=== PATIENT | female | born 1955 | race Caucasian/White ===

== ENCOUNTER 2020-06-08 08:36 | Day surgery (SDC) | payer MEDICARE, SELFPAY ==
[~2020-06-08] VITALS: Ht 154.9 cm; Wt 78.6 kg
[~2020-06-08 08:36] MED LIST: CYCL10 PO; LISINOPRIL-HCT1 EACH PO; METAMUCIL POWD575 GM PO; METF500 PO
--- NOTE | 2020-06-08 09:06 | NUR ---
06/08/20 0906 Stephanie Decker 1 TRY RIGHT HAND VALVE 2 TRY RIGHT UPPER ARM MOVED
[2020-07-17] MEDS ORDERED: FURO20 PO (12:26)
[2020-07-17] MEDS ORDERED: ZESTRIL40 M1 PO (12:26)
[2020-07-17] MEDS ORDERED: ALLEGRA ALLERG180 MG PO (12:27)
[2020-07-17] MEDS ORDERED: OMEP20ER PO (12:28)
[2020-07-17] MEDS ORDERED: BENADRYL25 MG PO (12:28)
== END 2020-06-08 10:48 | disposition home or self-care (01) ==
LOC: ORSCSDS 08:36
PROVIDERS: Internal Medicine Gastroenterology
PROC: 0DBL8ZX Excision of Transverse Colon, Via Natural or Artificial Opening Endoscopic, Diagnostic (ICD-10-PCS; principal; 2020-06-08 09:45)
PROC: 3E0H8KZ Introduction of Other Diagnostic Substance into Lower GI, Via Natural or Artificial Opening Endoscopic (ICD-10-PCS; principal; 2020-06-08 09:45)
DX: Z12.11 Encounter for screening for malignant neoplasm of colon (principal); D37.4 Neoplasm of uncertain behavior of colon; K57.30 Diverticulosis of large intestine without perforation or abscess without bleeding; K64.8 Other hemorrhoids; Z80.0 Family history of malignant neoplasm of digestive organs; E11.9 Type 2 diabetes mellitus without complications; E78.5 Hyperlipidemia, unspecified; I10 Essential (primary) hypertension; F41.9 Anxiety disorder, unspecified; K21.9 Gastro-esophageal reflux disease without esophagitis; Z79.84 Long term (current) use of oral hypoglycemic drugs; Z79.899 Other long term (current) drug therapy
CPT/HCPCS: 82947; 88305; J2704; J7040; J7120

== ENCOUNTER 2020-07-19 10:44 | Inpatient (IN) | payer MEDICARE, SELFPAY ==
[~2020-07-19] VITALS: Ht 154.9 cm; Wt 82.3 kg
[~2020-07-19 10:44] MED LIST changes: +ALLEGRA ALLERG180 MG PO; +BENADRYL25 MG PO; +FURO20 PO; +OMEP20ER PO; +ZESTRIL40 M1 PO
[2020-07-20 11:46] LABS: International Normalized Ratio 0.97; Prothrombin Time Results 10.4 Sec (9.7-11.5)
--- NOTE | 2020-07-21 08:57 | NUR ---
Ambulatory in Day Surgery. Surgical site prepped with 2% Chlorhexidine cloth wipe. Patient states colon prep results clear. History, Chart, Medications and Allergies reviewed before start of procedure. Lungs clear T/O to Auscultation. Patient confirms NPO status and agrees with scheduled surgery. Pre-Op teaching done. Pt verbalizes understanding. Patient reports completing Chlorhexadine shower X2 prior to admission to hospital. CBG 240. 2 units Regular insulin ordered. Ordered from pharmacy.
[2020-07-21] MEDS ORDERED: GUAI600T33 PO (09:02)
[2020-07-21 15:24] LABS: BASOPHILS ABSOLUTE AUTO 0.04 K/mm3 (0.00-0.23); BASOPHILS PERCENT AUTO 0 % (0-2); EOSINOPHILS ABSOLUTE AUTO 0.01 K/mm3 (0.00-0.68); EOSINOPHILS PERCENT AUTO 0 % (0-6); Hematocrit 38.6 % (33.0-51.0); IMMATURE GRAN ABSOLUTE AUTO 0.03 K/mm3 (0.00-0.10); IMMATURE GRAN PERCENT AUTO 0 % (0-1); LYMPHOCYTES ABSOLUTE AUTO 0.74 K/mm3 (0.84-5.20); LYMPHOCYTES PERCENT AUTO 6 % (21-46); MONOCYTES ABSOLUTE AUTO 0.44 K/mm3 (0.16-1.47); MONOCYTES PERCENT AUTO 3 % (4-13); Mean Corpuscular HGB 28.8 pg (26.0-34.0); Mean Corpuscular HGB Conc 33.7 g/dL (31.5-36.5); Mean Corpuscular Volume 85 fL (80-100); Mean Platelet Volume 11.5 fL (9.1-12.4); NEUTROPHILS ABSOLUTE AUTO 11.93 K/mm3 (1.96-9.15); NEUTROPHILS PERCENT AUTO 91 % (41-73); Platelet Count 194 K/mm3 (150-400); RDW Coefficient Variation 12.9 % (11.7-14.2); RDW Standard Deviation 40.2 fL (35.1-46.3); Red Blood Cell Count 4.52 M/mm3 (3.80-5.20); White Blood Cell Count 13.19 K/mm3 (4.00-11.30)
--- NOTE | 2020-07-21 18:08 | NUR ---
SUMMARY PT REPORTS PAIN LEVEL 5-8/10 TO ABDOMEN. NAZ MIDLINE DRESSING INTACT. LAP SITES X3 WITH DRESSINGS INTACT. MEDICATED X1 FOR NAUSEA WITH RELIEF OF. PT RESTING WITH EYES CLOSED WHEN UNDISTURBED
[2020-07-22 04:26] LABS: BASOPHILS ABSOLUTE AUTO 0.06 K/mm3 (0.00-0.23); BASOPHILS PERCENT AUTO 0 % (0-2); EOSINOPHILS ABSOLUTE AUTO 0.01 K/mm3 (0.00-0.68); EOSINOPHILS PERCENT AUTO 0 % (0-6); Hematocrit 43.4 % (33.0-51.0); Hemoglobin 14.6 g/dL (11.5-16.0); IMMATURE GRAN ABSOLUTE AUTO 0.09 K/mm3 (0.00-0.10); IMMATURE GRAN PERCENT AUTO 1 % (0-1); LYMPHOCYTES ABSOLUTE AUTO 2.44 K/mm3 (0.84-5.20); LYMPHOCYTES PERCENT AUTO 17 % (21-46); MONOCYTES ABSOLUTE AUTO 1.28 K/mm3 (0.16-1.47); MONOCYTES PERCENT AUTO 9 % (4-13); Mean Corpuscular HGB 28.2 pg (26.0-34.0); Mean Corpuscular HGB Conc 33.6 g/dL (31.5-36.5); Mean Corpuscular Volume 84 fL (80-100); NEUTROPHILS ABSOLUTE AUTO 10.43 K/mm3 (1.96-9.15); NEUTROPHILS PERCENT AUTO 73 % (41-73); RDW Coefficient Variation 13.2 % (11.7-14.2); RDW Standard Deviation 40.7 fL (35.1-46.3); Red Blood Cell Count 5.18 M/mm3 (3.80-5.20); White Blood Cell Count 14.31 K/mm3 (4.00-11.30)
[2020-07-22 04:30] LABS: Mean Platelet Volume 11.9 fL (9.1-12.4); Platelet Count 205 K/mm3 (150-400)
[2020-07-22 04:34] LABS: Alanine Aminotransfer (ALT/SGP 35 U/L (12-78); Albumin/Globulin Ratio 0.5 (0.8-1.8); Alk Phos 89 U/L (50-136); Anion Gap 5 mmol/L (6-16); Aspartate Aminotrans (AST/SGOT 45 U/L (12-37); Bilirubin, Total 0.4 mg/dL (0.1-1.0); Blood Urea Nitrogen 17 mg/dL (8-24); Bun/Creatinine Ratio 22.2 (12.0-20.0); CO2, Blood 29 mmol/L (21-32); Calcium, Blood 8.4 mg/dL (8.5-10.1); Chloride, Blood 106 mmol/L (98-108); Creatinine, Blood 0.77 mg/dL (0.40-1.00); Globulin, Blood 3.9 g/dL (2.2-4.0); Glomerular Filtration Rate >60 (60-); Glucose, Blood 151 mg/dL (70-99); Sodium, Blood 140 mmol/L (136-145); Total Protein, Blood 5.9 g/dL (6.4-8.2)
--- NOTE | 2020-07-22 04:39 | NUR ---
SHIFT SUMMARY POD1 R HEMICOLECTOMY. AOX4. HYPERTENSIVE BUT IMPROVED THIS MORNING. REPORTS PAIN. PAIN MANAGED WITH DILAUDID AND NORCO PRN. PT REPORTS MILD NAUSEA DENIES VOMITING. MEDICATED WITH ZOFRAN X 1 DURING MY SHIFT. URINARY CATHETER IS STILL IN PLACED. PT HAS MIDLINE NAZ WITH MILD DRAINAGE WHICH HAS NOT CHANGED SINCE THE BEGINNING OF THE SHIFT. LR INFUSING ON LEFT FOREARM WITH 100ML/HR. TOLERATING ICE CHIPS AND WATER AT THIS TIME. PT DENIES PASSING FLATUS. CALL LIGHT WITHIN REACH.
--- NOTE | 2020-07-22 19:43 | NUR ---
SHIFT SUMMARY PT A&OX4, VSS, POD1 LAP HEMICOLECTOMY, MIDLINE NAZ/3 LAPSITES CDI, BELCHING+ DENIES FLATUS. PAIN TREATED WITH 0.5 MG IV DILAUDID X2 AND ULTRAM 50 MG X1. PACO CLEAR LIQUID DIET IN SMALL AMOUNTS, ZOFRAN GIVEN X2. AMBULATED SBA TO CHAIR FOR A SHORT TIME, BACK TO BED, SAT ON BEDSIDE. ALLEN PATENT & DRAINING ORANGE URINE. REPORT GIVEN TO FAVIAN TRACY.
--- NOTE | 2020-07-23 03:48 | NUR ---
SHIFT SUMMARY PT IS A/O X4. REPOSITIONS SELF IN BED AND HAS BEEN ASSISTED PRN. PT IS TOLERATING CLEAR LIQUIDS WITH MINIMAL NAUSEA OVERNIGHT. PAIN MANAGED WITH ULTRAM PER ORDERS. NAZ DRESSING CHANGED ORIGINAL DRESSING WOULD NOT SEAL. PT C/O REFLUX; MED WITH OMEPRAZOLE PER ORDER. THIS HELPED GREATLY AND PT WAS ABLE TO GET SOME REST. ALLEN IN PLACE WITH LOW URINE OUTPUT. IV FLUIDS INFUSING OVERNIGHT. ABD BINDER PRN FOR COMFORT. PT RESTING AT THIS TIME.
[2020-07-23 04:11] LABS: BASOPHILS ABSOLUTE AUTO 0.07 K/mm3 (0.00-0.23); BASOPHILS PERCENT AUTO 1 % (0-2); EOSINOPHILS ABSOLUTE AUTO 0.04 K/mm3 (0.00-0.68); EOSINOPHILS PERCENT AUTO 0 % (0-6); Hematocrit 42.3 % (33.0-51.0); Hemoglobin 13.6 g/dL (11.5-16.0); IMMATURE GRAN ABSOLUTE AUTO 0.06 K/mm3 (0.00-0.10); IMMATURE GRAN PERCENT AUTO 0 % (0-1); LYMPHOCYTES ABSOLUTE AUTO 1.27 K/mm3 (0.84-5.20); LYMPHOCYTES PERCENT AUTO 9 % (21-46); MONOCYTES ABSOLUTE AUTO 0.78 K/mm3 (0.16-1.47); MONOCYTES PERCENT AUTO 6 % (4-13); Mean Corpuscular HGB 27.8 pg (26.0-34.0); Mean Corpuscular HGB Conc 32.2 g/dL (31.5-36.5); Mean Corpuscular Volume 87 fL (80-100); Mean Platelet Volume 11.2 fL (9.1-12.4); NEUTROPHILS ABSOLUTE AUTO 12.07 K/mm3 (1.96-9.15); NEUTROPHILS PERCENT AUTO 84 % (41-73); Platelet Count 275 K/mm3 (150-400); RDW Coefficient Variation 13.2 % (11.7-14.2); RDW Standard Deviation 42.1 fL (35.1-46.3); Red Blood Cell Count 4.89 M/mm3 (3.80-5.20); White Blood Cell Count 14.29 K/mm3 (4.00-11.30)
[2020-07-23 04:30] LABS: Alanine Aminotransfer (ALT/SGP 26 U/L (12-78); Albumin, Blood 1.8 g/dL (3.4-5.0); Albumin/Globulin Ratio 0.4 (0.8-1.8); Alk Phos 94 U/L (50-136); Anion Gap 7 mmol/L (6-16); Aspartate Aminotrans (AST/SGOT 26 U/L (12-37); Bilirubin, Total 0.6 mg/dL (0.1-1.0); Blood Urea Nitrogen 18 mg/dL (8-24); Bun/Creatinine Ratio 26.7 (12.0-20.0); CO2, Blood 27 mmol/L (21-32); Calcium, Blood 8.5 mg/dL (8.5-10.1); Chloride, Blood 103 mmol/L (98-108); Creatinine, Blood 0.67 mg/dL (0.40-1.00); Globulin, Blood 4.1 g/dL (2.2-4.0); Glomerular Filtration Rate >60 (60-); Glucose, Blood 177 mg/dL (70-99); Sodium, Blood 137 mmol/L (136-145); Total Protein, Blood 5.9 g/dL (6.4-8.2)
--- NOTE | 2020-07-23 16:14 | NUR ---
SHIFT SUMMARY PT A&OX4, VSS, POD2 LAP R HEMICOL, NAZ WNL, DENIES FLATUS, REPORTS BELCHING. PACO CLEAR LIQ DIET. AMBULATING TO BRP, AND IN HALLWAYS, UP TO CHAIR. VOIDING. PAIN MANAGED WITH ULTRAM 50 MG. WILL REPORT TO ONCOMING NOC RN.
--- NOTE | 2020-07-24 04:46 | NUR ---
SHIFT SUMMARY PT HAS BEEN A/O X4. IND. IN ROOM. PT IS VOIDING W/O DIFFICULTY. REPORTS PASSING FLATUS THIS SHIFT, NO BM YET. TOLERATING CLEAR LIQUIDS W/O NAUSEA. PT HAS DENIED NEED FOR PAIN MEDICATION OVERNIGHT. NAZ IN PLACE, FOAM COMPRESSED, GREEN LIGHT ON. LAP SITES CDI OVERNIGHT. PT RESTING IN BED AT THIS TIME, CALL LIGHT IN REACH.
--- NOTE | 2020-07-24 13:40 | NUR ---
Advance Directive(AD) Education/Spiritual Care visit conducted. Patient is lying in bed and alert. Patient tells me of her interest in the AD and so I give her an AD booklet and explain about the sections and the filing process. Patient demonstrates clear comprehension. Patient states that she would like to go over the booklet with her spouse. Patient tells me the family and fellow AA members that are praying for her. 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 She feels as if her last surgery could have had horrible results yet some how the doctors were able to stop the bleeding and pull her through. She is says that she is very thankful to be alive. Patient shares about a long list of loved ones who have in recent years including her sister who last November due to colon cancer. I normalize patient's experience and provide spiritual guidance, grief support and prayer. Patient responds well and shows signs of an elevated mood. I will continue to remain available to patient and family.
--- NOTE | 2020-07-24 16:24 | NUR ---
SHIFT SUMMARY PT IS POD#3 FROM OPEN CHIQUIS-COLECTOMY WITH DR. NATHAN. PAIN HAS BEEN MANAGED WITH ULTRAM THIS SHIFT. PT HAS BEEN ABLE TO PASS FLATUS AND HAVE A SMALL BM. PT TOLERATED FULL LIQUIDS FOR LUNCH AND WILL BE TRYING REGULAR FOR DINNER. PT HAS BEEN INDEPENDENT IN THE ROOM. VSS. WILL MONITOR UNTIL REPORT TO MICHELLE TRACY.
--- NOTE | 2020-07-25 02:47 | NUR ---
SHIFT SUMMARY: POD 4 CHIQUIS-COLECTOMY PATIENT IS ALERT AND ORIENTED X4 WHILE AWAKE. SHE HAS BEEN ASLEEP MAJORITY OF THE SHIFT. VS ARE WNL AND IS ON RA. PAIN IS CONTROLLED WITH ULTRAM PO THOUGH HAS NOT NEEDED IT SO FAR THIS SHIFT. PATIENT IS PASSING GAS, VOIDING, AND HAD A SMALL BM YESTERDAY ON DAYSHIFT. SHE TOLERATED HER FULL LIQUIDS YESTERDAY AND WILL TRY A REGULAR DIET FOR BREAKFAST. SHE IS INDEPENDENT IN THE ROOM. CALLS APPROPRIATELY. NAZ FOAM ON MIDLINE OF ABD IS COMPRESSED. SHE IS CURRENTLY LAYING IN BED WITH TV ON. CALL LIGHT WITHIN REACH. THE PLAN IS TO SEE HOW SHE TOLERATES A REGULAR DIET AND POSSIBLY DISCHARGE HOME.
[2020-07-25] MEDS ORDERED: TRAM50 PO (09:56)
--- NOTE | 2020-07-25 11:51 | NUR ---
DISCHARGE PT PROVIDED WITH WRITTEN AND VERBAL DISCHARGE INSTRUCTIONS; SHE REPORTED UNDERSTANDING. PRESCRIPTION FOR PAIN MEDICATION PROVIDED. PT MEETING ALL GOALS. PT ESCORTED OUT IN W/C BY VOLUNTEER.
== END 2020-07-25 11:20 | disposition home or self-care (01) | DRG 331 ==
LOC: SURS 07-21 07:15 → PRE IP 07-21 08:45 → SURS 07-21 15:03
PROVIDERS: ADMIT Surgery
PROC: 0DTF0ZZ Resection of Right Large Intestine, Open Approach (ICD-10-PCS; principal; 2020-07-21 08:45)
DX: K63.5 Polyp of colon (principal)
CPT/HCPCS: 36415; 80053; 82947; 85025; 85610; 86850; 86900; 86901; 88307; A9270; J0295; J0360; J1100; J1170; J1650; J1815; J2250; J2370; J2405; J2704; J2765; J3010; J7120

== ENCOUNTER 2021-06-08 11:29 | Emergency (ER) | payer MEDICARE ==
[~2021-06-08] VITALS: Ht 154.9 cm; Wt 65.3 kg
[~2021-06-08 11:29] MED LIST changes: +GUAI600T33 PO; +TRAM50 PO
[2021-06-08 12:30] LABS: BASOPHILS ABSOLUTE AUTO 0.05 K/mm3 (0.00-0.23); BASOPHILS PERCENT AUTO 1 % (0-2); EOSINOPHILS ABSOLUTE AUTO 0.14 K/mm3 (0.00-0.68); EOSINOPHILS PERCENT AUTO 2 % (0-6); Hematocrit 34.9 % (33.0-51.0); Hemoglobin 11.2 g/dL (11.5-16.0); IMMATURE GRAN ABSOLUTE AUTO 0.01 K/mm3 (0.00-0.10); IMMATURE GRAN PERCENT AUTO 0 % (0-1); LYMPHOCYTES ABSOLUTE AUTO 1.35 K/mm3 (0.84-5.20); LYMPHOCYTES PERCENT AUTO 19 % (21-46); MONOCYTES ABSOLUTE AUTO 0.43 K/mm3 (0.16-1.47); MONOCYTES PERCENT AUTO 6 % (4-13); Mean Corpuscular HGB Conc 32.1 g/dL (31.5-36.5); Mean Corpuscular Volume 84 fL (80-100); Mean Platelet Volume 10.4 fL (9.1-12.4); NEUTROPHILS ABSOLUTE AUTO 5.19 K/mm3 (1.96-9.15); NEUTROPHILS PERCENT AUTO 72 % (41-73); Platelet Count 209 K/mm3 (150-400); RDW Coefficient Variation 14.8 % (11.7-14.2); RDW Standard Deviation 45.8 fL (35.1-46.3); Red Blood Cell Count 4.15 M/mm3 (3.80-5.20); White Blood Cell Count 7.17 K/mm3 (4.00-11.30)
[2021-06-08 12:49] LABS: Albumin, Blood 3.3 g/dL (3.4-5.0); Albumin/Globulin Ratio 0.8 (0.8-1.8); Bilirubin, Total 0.3 mg/dL (0.1-1.0); Bun/Creatinine Ratio 24.8 (12.0-20.0); Calcium, Blood 9.3 mg/dL (8.5-10.1); Creatinine, Blood 1.25 mg/dL (0.40-1.00); Globulin, Blood 4.3 g/dL (2.2-4.0); Total Protein, Blood 7.6 g/dL (6.4-8.2)
[2021-06-08 15:15] LABS: Source, Urine Clean Catch
[2021-06-08 15:23] LABS: Bilirubin, Urine Neg (Neg); Blood, Urine Neg (Neg); Glucose Qualitative, Urine Neg (Neg); Ketones, Urine Neg (Neg); Leukocyte Esterase, Urine Neg (Neg); Nitrite, Urine Neg (Neg); Protein, Urine 3+ (Neg); Urobilinogen, Urine NORM (Normal); pH, Urine 6.5 (5.0-8.0)
[2021-06-08 15:33] LABS: Appearance, Urine Clear (Clear); Color, Urine Pale Yellow (P-Yellow)
[2021-06-08 15:34] LABS: Bacteria Rare /hpf; Red Blood Cells, Urine 0-2 /hpf (0-2); Squamous Epithelial Cells Rare /hpf (Few); White Blood Cells, Urine 0-2 /hpf (0-5)
[2021-06-08] MEDS ORDERED: CEPH500 PO (16:19)
== END 2021-06-08 16:20 | disposition home or self-care (01) ==
LOC: ER 11:29
PROVIDERS: Emergency Medicine; Physician Assistant
DX: L03.316 Cellulitis of umbilicus (principal); I10 Essential (primary) hypertension; E11.9 Type 2 diabetes mellitus without complications; Z79.899 Other long term (current) drug therapy; Z88.5 Allergy status to narcotic agent; Z88.8 Allergy status to other drugs, medicaments and biological substances; Z88.1 Allergy status to other antibiotic agents
CPT/HCPCS: 36415; 76857; 80053; 81001; 83605; 85025; 96374; 99284-25; J0696

== ENCOUNTER → 2021-10-14 | Outpatient (CLI) | payer MEDICARE ==
[~2021-10-14] MED LIST changes: +CEPH500 PO
[2021-10-14 16:35] LABS: BASOPHILS ABSOLUTE AUTO 0.02 K/mm3 (0.00-0.23); BASOPHILS PERCENT AUTO 0 % (0-2); EOSINOPHILS ABSOLUTE AUTO 0.19 K/mm3 (0.00-0.68); EOSINOPHILS PERCENT AUTO 4 % (0-6); Hematocrit 33.7 % (33.0-51.0); Hemoglobin 11.3 g/dL (11.5-16.0); IMMATURE GRAN ABSOLUTE AUTO 0.01 K/mm3 (0.00-0.10); IMMATURE GRAN PERCENT AUTO 0 % (0-1); LYMPHOCYTES ABSOLUTE AUTO 1.25 K/mm3 (0.84-5.20); LYMPHOCYTES PERCENT AUTO 26 % (21-46); MONOCYTES ABSOLUTE AUTO 0.27 K/mm3 (0.16-1.47); MONOCYTES PERCENT AUTO 6 % (4-13); Mean Corpuscular HGB 27.9 pg (26.0-34.0); Mean Corpuscular HGB Conc 33.5 g/dL (31.5-36.5); Mean Corpuscular Volume 83 fL (80-100); NEUTROPHILS ABSOLUTE AUTO 3.02 K/mm3 (1.96-9.15); NEUTROPHILS PERCENT AUTO 63 % (41-73); Platelet Count 142 K/mm3 (150-400); RDW Coefficient Variation 13.8 % (11.7-14.2); RDW Standard Deviation 41.4 fL (35.1-46.3); Red Blood Cell Count 4.05 M/mm3 (3.80-5.20); White Blood Cell Count 4.76 K/mm3 (4.00-11.30)
[2021-10-14 16:47] LABS: Albumin, Blood 3.6 g/dL (3.4-5.0); Bilirubin, Total 0.4 mg/dL (0.1-1.0); Bun/Creatinine Ratio 15.5 (12.0-20.0); Calcium, Blood 9.3 mg/dL (8.5-10.1); Creatinine, Blood 1.29 mg/dL (0.40-1.00); Globulin, Blood 3.7 g/dL (2.2-4.0); Potassium, Blood 3.5 mmol/L (3.5-5.5); Total Protein, Blood 7.3 g/dL (6.4-8.2)
== END ==
LOC: LAB SHORT 16:27
PROVIDERS: Physician Assistant
DX: R07.9 Chest pain, unspecified (principal)
CPT/HCPCS: 80053; 83690; 84484; 85025

== ENCOUNTER 2021-11-14 12:12 | Day surgery (SDC) | payer MEDICARE ==
[~2021-11-14] VITALS: Ht 154.9 cm; Wt 72.3 kg
[~2021-11-14 12:12] MED LIST changes: +METAMUCIL POWD798 GM; +METFORMIN ER G500 MG PO
--- NOTE | 2021-11-14 15:31 | NUR ---
11/14/21 1531 Serena Cordova PT REFUSED MULTIPLE OFFERS OF PO FLUIDS
== END 2021-11-14 15:26 | disposition home or self-care (01) ==
LOC: ORSCSDS 12:12
PROVIDERS: Internal Medicine Gastroenterology
PROC: 0DJD8ZZ Inspection of Lower Intestinal Tract, Via Natural or Artificial Opening Endoscopic (ICD-10-PCS; principal; 2021-11-14 13:30)
DX: Z86.010 Personal history of colon polyps (principal); Z80.0 Family history of malignant neoplasm of digestive organs; K64.8 Other hemorrhoids; K21.9 Gastro-esophageal reflux disease without esophagitis; E11.9 Type 2 diabetes mellitus without complications; E78.5 Hyperlipidemia, unspecified; I10 Essential (primary) hypertension; Z79.899 Other long term (current) drug therapy
CPT/HCPCS: 82947; J0461; J2405; J2704; J7120

== ENCOUNTER 2023-01-03 10:26 | Day surgery (SDC) | payer MEDICARE ==
[~2023-01-03] VITALS: Ht 154.9 cm; Wt 69.3 kg
[2023-01-03] MEDS ORDERED: TRAZ50 (10:40)
[2023-01-03] MEDS ORDERED: FURO20 (10:40)
[2023-01-03 12:19] VITALS: BP 170/84
== END 2023-01-03 12:27 | disposition home or self-care (01) ==
LOC: ORSCSDS 10:26
PROVIDERS: Internal Medicine Gastroenterology
PROC: 0DB98ZX Excision of Duodenum, Via Natural or Artificial Opening Endoscopic, Diagnostic (ICD-10-PCS; principal; 2023-01-03 11:45)
DX: K74.60 Unspecified cirrhosis of liver (principal); I85.10 Secondary esophageal varices without bleeding; E11.9 Type 2 diabetes mellitus without complications; K21.9 Gastro-esophageal reflux disease without esophagitis; I10 Essential (primary) hypertension; E78.5 Hyperlipidemia, unspecified; F41.9 Anxiety disorder, unspecified; Z79.899 Other long term (current) drug therapy
CPT/HCPCS: 82947; 88305; J2704; J7120

== ENCOUNTER 2023-12-30 08:15 | Day surgery (SDC) | payer OTHER ==
[~2023-12-30] VITALS: Ht 154.9 cm; Wt 71.3 kg
[~2023-12-30 08:15] MED LIST changes: +FURO20; +Lactated Ringer's 1,000 ML IV ONE; +TRAZ50; +propofoL 50 ML IV ONE
[2023-12-30] MEDS ORDERED: Carvedilol12.5 MG (08:40)
[2023-12-30] MEDS ORDERED: FURO40 (08:40)
[2023-12-30] MEDS ORDERED: INSULANPEN (08:42)
[2023-12-30] MEDS ORDERED: BUSP10 (08:42)
[2023-12-30] MEDS ORDERED: BACLOFEN5 M1 (08:42)
[2023-12-30] MEDS ORDERED: DEXCOM G7 RECE1 EACH (08:42)
[2023-12-30] MEDS ORDERED: SPIR25 (08:42)
[2023-12-30] MEDS ORDERED: Lactated Ringer's 1,000 ML IV ONE (09:15)
--- NOTE | 2023-12-30 09:20 | NUR ---
12/30/23 0920 Lidya Mejia PT. DENIES PAIN.
[2023-12-30] MEDS ORDERED: Lidocaine 2% 5 ML SDV ONE (10:36)
--- NOTE | 2023-12-30 13:24 | NUR ---
12/30/23 1324 Lidya Mejia PT. STATES "A LITTLE BIT." WHEN ASKED IF SHE HAD A SORE THROAT. PT. DENIES ANY OTHER PAIN. PT. INSTRUCTED THAT SHE HAD A LARYNGOSPASM DURING THE CASE & THAT A JAW THRUST WAS PERFORMED SO SHE MIGHT HAVE A SORE THROAT. PT. VERBALIZES THAT AT HOME SHE GOES INTO SPAMS AT TIMES & JUST TAKES DEEP BREATHS.
[2023-12-30 13:33] VITALS: BP 159/65
== END 2023-12-30 10:18 | disposition home or self-care (01) ==
LOC: ORSCSDS 08:15
PROVIDERS: Internal Medicine Gastroenterology
PROC: 0DJ08ZZ Inspection of Upper Intestinal Tract, Via Natural or Artificial Opening Endoscopic (ICD-10-PCS; principal; 2023-12-30 09:30)
DX: I85.00 Esophageal varices without bleeding (principal); E11.9 Type 2 diabetes mellitus without complications; I10 Essential (primary) hypertension; K76.6 Portal hypertension; Z80.0 Family history of malignant neoplasm of digestive organs; E78.5 Hyperlipidemia, unspecified; K74.60 Unspecified cirrhosis of liver; F41.9 Anxiety disorder, unspecified; R16.1 Splenomegaly, not elsewhere classified; Z79.899 Other long term (current) drug therapy
CPT/HCPCS: 82947; J2704; J7120

== ENCOUNTER → 2024-09-07 | Outpatient (CLI) | payer OTHER ==
[~2024-09-07] MED LIST changes: +BACLOFEN5 M1; +BUSP10; +Carvedilol12.5 MG; +DEXCOM G7 RECE1 EACH; +FURO40; +INSULANPEN; -Lactated Ringer's 1,000 ML IV ONE; +SPIR25; -propofoL 50 ML IV ONE
[2024-09-07 10:47] LABS: Source, Urine Clean Catch
[2024-09-07 11:29] LABS: Appearance, Urine Clear (Clear); Color, Urine Yellow (P-Yellow)
[2024-09-07 11:30] LABS: Bilirubin, Urine Neg (Neg); Blood, Urine Neg (Neg); Glucose Qualitative, Urine Neg (Normal); Ketones, Urine Neg (Neg); Leukocyte Esterase, Urine Neg (Neg); Nitrite, Urine Neg (Neg); Protein, Urine Neg (Neg); Specific Gravity, Urine 1.005 (1.003-1.022); Urobilinogen, Urine NORM (Normal)
[2024-09-07 15:48] LABS: Creatinine, Urine Random 16.9 mg/dL (27.00-270.00); Microalb/Creat Ratio UR, Rand 53.254 mg/g (0.000-30.000)
== END | disposition home or self-care (01) ==
LOC: LAB 10:45 → LAB SHORT 10:45
PROVIDERS: Family Medicine
DX: E11.9 Type 2 diabetes mellitus without complications (principal); R82.998 Other abnormal findings in urine; Z79.4 Long term (current) use of insulin
CPT/HCPCS: 81003; 82043; 82570